=== PATIENT | male | born 2005 | race Caucasian/White ===

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

== ENCOUNTER 2023-01-26 16:05 | Emergency (ER) | payer BC, SELFPAY ==
[2023-01-26 16:07] VITALS: BP 150/93; PULSE 118; RESP 16; TEMP 37.6; O2SAT 99; BMI 31.8
--- NOTE | 2023-01-26 16:23 | HMH.EDGENADL ---
Discharge Plan Disposition Patient Disposition: Left Against Medical Advice Condition: Fair Prescriptions Prescriptions: New clindamycin HCl 300 mg capsule 300 mg PO BID 14 Days Qty: 28 0RF prednisone 20 mg tablet 20 mg PO BID 7 Days Qty: 14 0RF No Action ibuprofen 800 MG tablet 800 mg PO Q8HP PRN (Reason: Moderate Pain) Qty: 30 0RF cephalexin 500 MG capsule 500 mg PO Q6H 10 Days Qty: 40 0RF mupirocin 22 GM ointment 1 applicatio TP TID 7 Days Qty: 1 0RF Referrals Follow up/Referrals: Indio Stone MD [Physician] - See instructions Provider,MD Eloy [Primary Care Provider] - See instructions Activity Restrictions/Add. Instructions Additional Instructions/Restrictions: As discussed, you have a peritonsillar abscess on the back of your throat, per the recommendations of the ENT consultants the definitive management for this condition is drainage. Failing to do so may lead to worsening of the infection including inability to breathe, spread of the infection into lower areas, worsening of her condition, . That being said, I have prescribed antibiotics and steroids for you to take and will arrange for follow-up with ENT. Please do not hesitate to the return to the emergency department if you change your mind about getting this procedure, we will be happy to take care of you, also please come back to the emergency department if you have any worsening symptoms or new symptoms. Clinical Impressions Clinical Impression: Abscess, peritonsillar Instructions Patient Instructions: DI for Peritonsillar Abscess -- Adult, Peritonsillar Abscess Discharge ED Provider: Nadeem Toussaint General Adult HPI General Chief complaint: PAIN Stated complaint: difficulty breathing in morning, & swallowing Time Seen by Provider: 01/26/23 16:23 History of Present Illness HPI narrative: Patient presents for evaluation of reported shortness of air, sore throat, gradual in onset starting approximately 1 week ago, patient was previously evaluated by other provider and was prescribed cefdinir however discontinued this medication due to reported adverse reaction, denies dysphagia or globus sensation however does describe swelling of his neck, no voice changes, no fevers or chills or nausea or vomiting, no pain elsewhere, does describe dental pain in mandibular molar, denies chronic medical issues, denies recreational drug use including IV drug use, does describe smoking history. Related Data Previous Rx's Medication Instructions Recorded cephalexin 500 mg capsule 500 mg PO Q6H 10 days #40 caps 01/30/22 ibuprofen 800 mg tablet 800 mg PO Q8HP PRN Moderate Pain 01/30/22 #30 tabs mupirocin 2 % topical ointment 1 applicatio topical TID 7 days #1 01/30/22 g clindamycin HCl 300 mg capsule 300 mg PO BID 14 days #28 caps 01/26/23 prednisone 20 mg tablet 20 mg PO BID 7 days #14 tabs 01/26/23 Allergies Allergy/AdvReac Type Severity Reaction Status Date / Time No Known Allergies Allergy Verified 01/30/22 09:51 [facility] Disclaimer: The information contained in this section may have been updated after the patient was seen, as this information can be updated by other users. Social History Smoking Status: Current every day smoker alcohol intake: current current occupational status: employed Travel in the last 8 weeks: None ROS Obtained: Yes Systems reviewed as appropriate & no additional complaints except as documented Physical Exam General General appearance: alert and in no apparent distress Head Head exam: atraumatic and normocephalic Eye Eye exam: Present normal appearance Expanded ENT Exam Comment: Bilateral tonsillar swelling with exudate, left greater than right, no trismus, no respiratory distress, no dental abscess, no pain on percussion of mandibular molars, no submandibular tenderness to palpation Neck Neck exam: Present normal in
[2023-01-26 16:53] VITALS: BP 154/102; PULSE 108; O2SAT 99
[2023-01-26 17:00] VITALS: BP 159/95; PULSE 107; O2SAT 99
[2023-01-26 17:30] VITALS: BP 166/104; PULSE 107; O2SAT 99
--- NOTE | 2023-01-26 17:32 | CT_ITS ---
PROCEDURE INFORMATION: Exam: CT Neck With Contrast Exam date and time: 01/26/2023 6:04 PM Age: 17 years old Clinical indication: Throat pain; Additional info: Sore throat, dysphagia, eval for deep space infx TECHNIQUE: Imaging protocol: Computed tomography of the neck with contrast. Radiation optimization: All CT scans at this facility use at least one of these dose optimization techniques: automated exposure control; mA and/or kV adjustment per patient size (includes targeted exams where dose is matched to clinical indication); or iterative reconstruction. Contrast material: ISOVUE; Contrast volume: 75 ml; Contrast route: IV; REPORTING DATA: Count of CT and Cardiac NM exams in prior 12 months: This patient has received 0 known CTs and 0 known cardiac nuclear medicine studies in the 12 months prior to the current study. COMPARISON: No relevant prior studies available. FINDINGS: Pharynx: The lingual and palatine tonsils are swollen and edematous. There is a 12 mm focus of low attenuation adjacent to the left palatine tonsil on image 31 series 3. This may represent a developing peritonsillar abscess. Larynx: Unremarkable. Epiglottis is normal. Prevertebral and retropharyngeal spaces: Unremarkable. Salivary glands: Normal. Glands are normal in size. Thyroid: Normal. No enlarged or calcified nodules. Lymph nodes: Enlarged bilateral cervical lymph nodes are most likely reactive. Trachea: Visualized trachea is unremarkable. Lungs: Unremarkable as visualized. Bones/joints: Unremarkable. No acute fracture. Soft tissues: Unremarkable. No significant soft tissue swelling. IMPRESSION: 1. The lingual and palatine tonsils are swollen and edematous. Tonsillitis would be most likely. 2. There is a 12 mm focus of low attenuation adjacent to the left palatine tonsil on image 31 series 3. This may represent a developing peritonsillar abscess. 3. THIS REPORT CONTAINS FINDINGS THAT MAY BE CRITICAL TO PATIENT CARE. The findings were verbally communicated via telephone conference with Nadeem Toussaint at 6:52 PM EDT on 01/26/2023. The findings were acknowledged and understood.
--- NOTE | 2023-01-26 18:02 | PC.NURSE ---
PT GONE TO CT
[2023-01-26 18:15] LABS: Basophils # 0.1 K/mm3 (0-0.2); Basophils % 0.9 % (0.1-2.0); Eosinophils # 0.2 K/mm3 (0.0-0.4); Eosinophils % 1.4 % (0.1-12.0); Hematocrit 43.6 % (42.0-52.0); Hemoglobin 14.9 g/dL (14.1-18.0); Lymphocytes # 3.9 K/mm3 (0.7-4.5); Lymphocytes % 35.6 % (10-50); Mean Corpuscular HGB Conc 34.2 g/dL (31.8-35.4); Mean Corpuscular Hemoglobin 27.8 pg (27.0-31.2); Mean Corpuscular Volume 81.5 fl (80-94); Mean Platelet Volume 8.4 fl (7.4-10.4); Monocytes # 0.6 K/mm3 (0.1-1.0); Monocytes % 5.5 % (1.7-9.3); Neutrophils # 6.2 K/mm3 (1.8-7.8); Neutrophils % 56.6 % (37.0-80.0); Platelet Count 263 K/mm3 (142-424); Red Blood Count 5.35 M/mm3 (4.60-6.20); White Blood Count 10.9 K/mm3 (4.5-13.0)
[2023-01-26 18:17] LABS: Chloride 100 mmol/L (98-107); Sodium 140 mmol/L (136-145)
[2023-01-26 18:18] LABS: Potassium 3.2 mmoL/L (3.5-5.1)
[2023-01-26 18:20] LABS: Alanine Aminotransferase 38 U/L (12-78); Albumin Level 4.4 g/dl (3.5-5.0); Alkaline Phosphatase 84 U/L (38-126); Anion Gap 15.2 mEq/L (5-15); Aspartate Amino Transferase 38 U/L (17-59); Blood Urea Nitrogen 7 mg/dl (9-20); Calcium 9.2 mg/dl (8.4-10.2); Carbon Dioxide 28 mmol/L (22.0-30.0); Creatinine Clearance Estimated 270 mL/min (50-200); Estimated Glomerular Filt Rate 145 ml/min (>60); GFR (African American) 176 ML/MIN (>60); Globulin 4.4 g/dL (1.3-3.2); Glucose 103 mg/dl (74-100); Total Protein,Serum 8.8 g/dl (6.3-8.2)
[2023-01-26 18:46] LABS: Erythrocyte Sedimentation Rate 26 mm/hr (0-15)
--- NOTE | 2023-01-26 18:52 | PC.NURSE ---
ER MD Toussaint speaking with JEROD
[2023-01-26 20:08] LABS: Strep Scrn Group A (Rapid) Negative (Negative)
[2023-01-26 20:44] VITALS: BP 154/92; PULSE 82; RESP 20; TEMP 37.4
== END 2023-01-26 20:38 | disposition left against medical advice (07) ==
PROVIDERS: Emergency Provider Emergency Medicine
DX: J36 Peritonsillar abscess (principal); F17.200 Nicotine dependence, unspecified, uncomplicated
CPT/HCPCS: 70491; 80053; 85025; 85651; 87430; 96374; 99285; Q9967

== ENCOUNTER 2025-04-13 01:54 | Emergency (ER) | payer BC, SELFPAY ==
[2025-04-13 02:01] VITALS: BP 156/110; PULSE 71; RESP 16; TEMP 36.9; O2SAT 100; BMI 33.3
[2025-04-13 02:07] VITALS: BP 156/110; PULSE 71; RESP 16; TEMP 36.9; O2SAT 100
[2025-04-13] MEDS: LIDOCAINE 2% VISCOUS SOL 15ML UDC 15 ML PO (02:13)
[2025-04-13] MEDS: AMOXICILLIN/CLAVULANATE POTASSIUM 875/125MG TABLET 1 EACH PO (02:13)
[2025-04-13] MEDS: TETRACAINE/BENZOCAINE/BUTAMBEN 56 GM SPRAY TP (02:13)
[2025-04-13 02:18] VITALS: BP 156/88; PULSE 114; RESP 16; TEMP 36.9; O2SAT 100
--- NOTE | 2025-04-13 03:03 | HMH.EDGENADL ---
Discharge Plan Disposition Patient Disposition: Home, Self-Care Condition: Good Prescriptions Prescriptions: New amoxicillin-pot clavulanate 875-125 mg tablet 1 tab PO BID Qty: 20 0RF No Action ibuprofen 800 MG tablet 800 mg PO Q8HP PRN (Reason: Moderate Pain) Qty: 30 0RF cephalexin 500 MG capsule 500 mg PO Q6H 10 Days Qty: 40 0RF mupirocin 22 GM ointment 1 applicatio TP TID 7 Days Qty: 1 0RF clindamycin HCl 300 mg capsule 300 mg PO BID 14 Days Qty: 28 0RF prednisone 20 mg tablet 20 mg PO BID 7 Days Qty: 14 0RF Referrals Follow up/Referrals: Provider,Referral, MD [Primary Care Provider, Medical] - See instructions Activity Restrictions/Add. Instructions Additional Instructions/Restrictions: You were evaluated in the ER and are believed to be appropriate for discharge at this time. Take the prescribed antibiotics as directed, do not skip doses, do not stop taking them early. As discussed, please improve your dental hygiene and make an appointment with a dentist to fully treat your ongoing problems. The dental clinic information is below if you choose to use them. Take Tylenol and ibuprofen if needed for pain, do not exceed the recommended dose on the bottle. Drink water and eat a small snack each time you take these medications to avoid side effects. Use the provided dental balls if needed, 1 hour on, 1 hour off. Do not eat, drink, or sleep with these in place to avoid choking. Return to the ER with any new, worsening, or otherwise concerning symptoms. Dental walk in clinic 7:45am-10:30am, first come, first served [address] [place], [place] [phone] Clinical Impressions Clinical Impression: Pain, dental, Gingivitis, Dental cavities Stand Alone Forms Stand Alone Forms: Work/School Release Print Language Print Language: Citizen Of [place] Discharge ED Provider: Jacqueline Mayo General Adult HPI General Chief complaint: PAIN Stated complaint: toothache Time Seen by Provider: 04/13/25 02:04 Mode of Arrival: Ambulatory Source of Information: Patient Description of Symptoms (Recalled from ER Triage Doc. by RN): PT presents to the ED for evaluation of L upper tooth pain. PT stated it started on this date. PT took pain reliver 1 hour prior to arrival. History of Present Illness HPI narrative: 19-year-old male who reports being otherwise healthy, no daily medications, no known drug allergies presents to the ER complaining of left upper dental pain. Patient reports pain started today, he thinks he has a broken or bad tooth in this area. States he does not recall the last time he had a dental exam or treatment. Patient reports taking pain reliever which according to friend at bedside is Tylenol. Patient reports minimal relief of symptoms. He has no radiation of pain, no difficulty opening the mouth, no difficulty swallowing or breathing, no fevers or chills, no pain in the neck or under the jaw. No facial swelling. Denies any other complaints or concerns. Related Data Previous Rx's ?Medication ?Instructions ?Recorded cephalexin 500 mg capsule 500 mg PO Q6H 10 days #40 caps 01/30/22 ibuprofen 800 mg tablet 800 mg PO Q8HP PRN Moderate Pain 01/30/22 #30 tabs mupirocin 2 % topical ointment 1 applicatio topical TID 7 days #1 01/30/22 g clindamycin HCl 300 mg capsule 300 mg PO BID 14 days #28 caps 01/26/23 prednisone 20 mg tablet 20 mg PO BID 7 days #14 tabs 01/26/23 amoxicillin 875 mg-potassium 1 tab PO BID #20 tabs 04/13/25 clavulanate 125 mg tablet Allergies Allergy/AdvReac Type Severity Reaction Status Date / Time No Known Allergies Allergy Verified 01/30/22 09:51 [facility] Disclaimer: The information contained in this section may have been updated after the patient was seen, as this information can be updated by other users. Social History Smoking Status: Current every day smoker alcohol intake: current current occupational status: employed Travel in the last 8 weeks?: None Have you lived/traveled outside US in past 30 days?: No Contact w/someone who lives/traveled outside US past 30 days?: No Exposure to someone with infectious disease in past 14 days?: No Do you have a fever (greater than 100.4 F or 38 C)?: No Have you tested positive for COVID-19?: No Exposed to someone with COVID-19 in past 14 days?: No Do you have a sore throat?: No Do you have a cough?: No Do you have any weakness?: No Do you have any diarrhea?: No Are you experiencing any unusual bleeding?: No Do you have any muscle aches/pain?: No Do you have any abdominal pain?: No Are you experiencing loss of taste or smell?: No ROS Obtained: Yes Systems reviewed as appropriate & no additional complaints except as documented Per HPI Physical Exam General General appearance: alert and in no apparent distress Head Head exam: atraumatic and normocephalic Eye Eye exam: Present PERRL and EOMI ENT ENT exam: Present mucous membranes moist Expanded ENT Exam Mouth exam: Absent drooling, trismus, tongue elevation or tongue swelling Teeth exam: Present dental caries (Left maxillary molars and premolars) and gingival swelling (Diffusely around all the teeth but worse in the left maxillary region with no abscess) Teeth numbered Image:  1. Dental Tenderness (At the lateral gumline of tooth 15, dental caries present) Throat exam: Present normal inspection; Absent tonsillar erythema or tonsillomegaly Neck Neck exam: Present normal inspection and full ROM Chest Chest inspection: Present symmetric chest wall rise Respiratory Respiratory exam: Absent respiratory distress, wheezes or stridor Cardiovascular Cardiovascular exam: Present regular rate and normal rhythm Extremities Exam Extremities exam: Present full ROM Neurological Exam Neurological exam: Present alert and oriented X3; Absent motor sensory deficit Psychiatric Psychiatric exam: Present normal affect and normal mood Skin Skin exam: Present warm and dry Medical Decision Making Medical Records Medical records reviewed: Yes I reviewed the patient's medical records. Screening: Per USPSTF and CDC recommendations, given the prevalence of disease in our region, it is our hospital?s policy to screen for HIV and viral Hepatitis for all patients aged 18 and over and those with ongoing risk factors. Michael Inquiry Pt receiving controlled substance: No Vital Signs: 04/13/25 02:01 04/13/25 02:07 04/13/25 02:18 Temperature 98.4 F 98.4 F 98.4 F Temperature Source Oral Oral Pulse Rate 71 114 H Pulse Rate [Right] 71 Respiratory Rate 16 16 16 Blood Pressure 156/110 H 156/88 H Blood Pressure [Right Arm] 156/110 H Blood Pressure Mean [Right Arm] 125 02 Sat by Pulse Oximetry 100 100 Oxygen Delivery Method Room Air Room Air Room Air Orders (Tests/Meds): ED MEDICATIONS Discontinued Medications Generic Name Dose Route Start Last Admin Trade Name Freq PRN Reason Stop Dose Admin Amoxicillin/Clavulanate Potassium 1 each 04/13/25 02:04 04/13/25 02:13 Amoxicillin/Clavulanate Potassium 875/125mg Tablet PO 04/13/25 02:05 1 each ONCE ONE Administration Benzocaine/Butamben/Tetracaine HCl 1 gm 04/13/25 02:04 04/13/25 02:13 Tetracaine/Benzocaine/Butamben 56 Gm [place] TP 04/13/25 02:05 1 gm ONCE ONE Administration Lidocaine HCl 15 ml 04/13/25 02:04 04/13/25 02:13 Lidocaine 2% Viscous [place] 15ml Udc PO 04/13/25 02:05 15 ml ONCE ONE Administration Medical Decision Narrative: In summary, this 19-year-old male presents to the emergency department today with left maxillary dental pain. On initial evaluation patient is hemodynamically stable, afebrile, airway patent, tolerating secretions, no trismus, no woodiness of the floor of the mouth, no tongue elevation, no sublingual or submandibular swelling or evidence of cellulitis. No lymphadenopathy or fevers, no facial swelling, patient has dental tenderness and gingival inflammation around tooth 15 as well as numerous dental caries of the left maxillary molars and premolars, no obvious abscess. Differential diagnosis includes but is not limited to dental caries and cavities, gingivitis, dental infection, dental abscess, considered fractured tooth but do not appreciate evidence of this, no evidence of Ray's though this was also considered. Patient is well-appearing with no signs of systemic illness so I do not believe patient requires labs or imaging at this time. He already took Tylenol at home, I administered dental balls and Augmentin in the ER. Augmentin prescribed, dental balls provided to the patient with instructions for use. He was instructed for outpatient follow-up, given information regarding dental walk-in clinic if needed for follow-up, instructions on prescription use, dental ball use, [id number] medication use, and return precautions for the ER. He indicated understanding and the patient was discharged in stable condition. Critical Care Critical Care Time Critical Care Time: No
== END 2025-04-13 02:24 | disposition home or self-care (01) ==
PROVIDERS: Emergency Provider Emergency Medicine
DX: K02.9 Dental caries, unspecified (principal); K05.10 Chronic gingivitis, plaque induced; K08.89 Other specified disorders of teeth and supporting structures; F17.210 Nicotine dependence, cigarettes, uncomplicated
CPT/HCPCS: 99283